=== PATIENT | male | born 1945 | race Caucasian/White ===

== ENCOUNTER 2019-04-03 08:16 | Outpatient (CLI) | payer MEDICARE ==
--- NOTE | 2019-04-06 02:03 | Ultrasound Report ---
Reason: ABDOMINAL AORTIC ANEURYSM SCREENING Procedure Date: 04/03/2019 Accession Number: [id number] / [id number] Procedure: US - Aorta Screening CPT Code: Final Report FULL RESULT: EXAM: AORTIC DOPPLER ULTRASOUND EXAM DATE: 04/03/2019 08:49 AM CLINICAL HISTORY: Abdominal aortic aneurysm screening. COMPARISON: None. TECHNIQUE: Real-time sonographic imaging of retroperitoneal vascular structures, including color-flow, Doppler flow and spectral analysis was performed by the contract consultant. Multiple auto claim representative static images were saved for review. FINDINGS: Aorta: The abdominal aorta was adequately visualized. No evidence for abdominal aortic aneurysm. Aorta: Proximal: Sagittal AP: 2.5 x 2.6 cm. Mid: Transverse: 1.8 x 2.0 cm. Distal: Transverse: 1.5 x 1.6 cm. Caliber WNL: Yes. Plaque visualized: Yes, left iliac. Iliacs: Right Iliac: Transverse: 1.1 x 1.2 cm. Left Iliac: Transverse: 1.1 x 1.1 cm. Iliac Vessels: The visualized proximal common iliac arteries are normal in caliber. Other: None. IMPRESSION: No abdominal aortic aneurysm. RADIA
== END 2019-04-03 08:17 | disposition home or self-care (01) ==
LOC: DI 08:16
PROVIDERS: ATTEND Family Medicine
DX: Z13.6 Encounter for screening for cardiovascular disorders (principal)
CPT/HCPCS: 76706

== ENCOUNTER 2022-07-24 07:49 | Day surgery (SDC) | payer MEDICARE ==
[2022-07-24] MEDS ORDERED: LACTATED RINGERS 1,000 ML IV ONE ×2 (08:24→10:47)
--- NOTE | 2022-07-24 09:13 | ANESTHESIA ---
Pre-Anesthesia VS, & Labs - Diagnosis adenocarcinoma, screening exam - Procedure EGD and colonoscopy Vital Signs: Temp Pulse Resp BP Pulse Ox O2 Flow Rate 36 C L 70 10 L 172/98 H 99 07/24/22 08:15 07/24/22 08:15 07/24/22 08:15 07/24/22 08:15 07/24/22 08:15 Height: 5 ft 6.5 in Weight (kg): 69 kg Body Mass Index: 24.1 BMI Classification: Normal - NPO >8 hours Home Medications and Allergies Atorvastatin [Lipitor] 40 mg PO QPM 05/19/22 Tamsulosin [Flomax] 0.4 mg PO DAILY 05/19/22 Allergies/Adverse Reactions: Allergies Allergy/AdvReac Type Severity Reaction Status Date / Time procaine [From Novocain] Allergy Unknown Verified 05/19/22 10:41 Anes History & Medical History - Anesthetic History Anesthesia Complications: reports: No previous complications - Medical History Cardiovascular: reports: High cholesterol Pulmonary: reports: None Gastrointestinal: reports: None Urinary: reports: Benign prostate hypertrophy Neuro: reports: None Musculoskeletal: reports: None Endocrine/Autoimmune: reports: None Skin: reports: Psoriasis Smoking Status: Former smoker Psychosocial: reports: Alcohol (wine daily) History of Cancer?: Yes (adenocarcinoma) - Surgical History Eyes Ears Nose Throat (EENT): reports: Tonsil/Adenoidectomy Exam General: Alert, Oriented x3, Cooperative, No acute distress Dental: WNL Mouth Openin Fingerbreadth Neck Mobility: Normal Mallampati classification: II Thyromental Distance: 4-6 cm Mental/Cognitive Status: Alert/Oriented X3, Normal for patient Plan Anesthesia Type: General, Total IV Consent for Procedure(s) Verified and Reviewed: Yes Code Status: Attempt Resuscitation ASA classification: 2-Mild systemic disease Is this case an emergency?: No
[2022-07-24] MEDS ORDERED: PROPOFOL 500 MG/50 ML 500 MG/50 ML VIAL ONE ×2 (09:35→10:09)
[2022-07-24] MEDS ORDERED: ePHEDrine 50 MG/ML VIAL IVP ONE (10:35)
[2022-07-24 11:20] VITALS: BP 103/58
--- NOTE | 2022-07-24 17:16 | ANESTHESIA POST OP EVALUATION ---
Anesthesia Post Eval - Post Anesthesia Eval Vitals: Last Vital Signs Temp 36.5 C 07/24/22 10:51 Pulse 65 07/24/22 11:20 Resp 16 07/24/22 11:20 BP 103/58 L 07/24/22 11:20 Pulse Ox 98 07/24/22 11:20 O2 Flow Rate CV Function Including HR & BP: Stable Pain Control: Satisfactory Nausea & Vomiting: Negative Mental Status: Baseline Respiratory Status: Airway Patent Hydration Status: Satisfactory Anesthesia Complications: None
== END 2022-07-24 07:50 | disposition home or self-care (01) ==
LOC: SDS 07:49
PROVIDERS: ATTEND Surgery
PROC: 0DB58ZX Excision of Esophagus, Via Natural or Artificial Opening Endoscopic, Diagnostic (ICD-10-PCS; 2022-07-24)
PROC: 0DB48ZX Excision of Esophagogastric Junction, Via Natural or Artificial Opening Endoscopic, Diagnostic (ICD-10-PCS; principal; 2022-07-24 09:00)
PROC: 0DB78ZX Excision of Stomach, Pylorus, Via Natural or Artificial Opening Endoscopic, Diagnostic (ICD-10-PCS; 2022-07-24 09:00)
DX: Z12.11 Encounter for screening for malignant neoplasm of colon (principal); K57.30 Diverticulosis of large intestine without perforation or abscess without bleeding; K44.9 Diaphragmatic hernia without obstruction or gangrene; K25.9 Gastric ulcer, unspecified as acute or chronic, without hemorrhage or perforation; K22.10 Ulcer of esophagus without bleeding; C44.40 Unspecified malignant neoplasm of skin of scalp and neck; Z87.891 Personal history of nicotine dependence
CPT/HCPCS: 43239; G0121; J7120